=== PATIENT | female | born 1930 | race Caucasian/White ===

== ENCOUNTER 2017-10-22 16:53 | Inpatient (IN) | payer OTHER ==
--- NOTE | 2017-10-22 17:13 | PDOC ---
History of Present Illness - General Stated Complaint: FX Time Seen by Provider: 10/22/17 17:12 - History of Present Illness Initial Comments: 10/22/17 17:35 87 yo F with h/o HTN, central retinal vein occlusion, arthritis, dementia, who arrives from [facility] w/ L hip fracture s/p mechanical fall. Pt. arrviing from [facility] on [facility] ( day 1 resident). correction reports states that pt. was found on ground after attempting to ambulate from bed to dresser. Fall documented at 0820 AM. Left X ray report + for fracture. Pt. reports falling this AM unprovoked. States that she was standing in room at 0830 and her legs buckled. Ambulates unassisted. Denies BENSON, lightheadedness, or LOC, and reports falling on L hip. Does not recall if she hit her head, neck, or back. Reports nausea with one episode of biliary emesis this AM. Denies F/C, CP, SOB, cough, abdominal pain, diarrhea, constipation, sensory changes, weakness. Denies h/o CVA/TIA. Denies CAD/MS. PMD. Dr. Roderick Gill. Past History - Past Medical History Allergies/Adverse Reactions: Allergies Allergy/AdvReac Type Severity Reaction Status Date / Time indomethacin Allergy Verified 10/22/17 17:28 sulfamethoxazole Allergy Verified 10/22/17 17:28 [From Bactrim] trimethoprim [From Bactrim] Allergy Verified 10/22/17 17:28 aspirin [From Percodan] AdvReac Verified 10/22/17 17:28 oxycodone [From Percodan] AdvReac Verified 10/22/17 17:28 Home Medications: Ambulatory Orders Acetaminophen [Tylenol -] 1,000 mg PO Q6H PRN 10/23/17 Amlodipine Besylate [Norvasc -] 5 mg PO HS PRN 10/23/17 Bisacodyl [Laxative] 5 mg PO DAILY PRN 10/23/17 Clotrimazole [Lotrimin 1% Cream -] 1 applic TP DAILY 10/23/17 Cyclobenzaprine HCl [Flexeril -] 5 mg PO TID PRN 10/23/17 Dimethicone/Colloidal Oatmeal [Aveeno Daily Moisturizing Lot] 532 ml TP DAILY Latanoprost 0.005% Eye Drops [Xalatan 0.005% Eye Drops -] 1 drop OU HS 10/23/17 Lisinopril [Prinivil -] 40 mg PO DAILY 10/23/17 Magnesium Hydrox 2400MG/30Ml [Milk of Magnesia -] 30 ml PO DAILY PRN 10/23/17 Neomycin/Bacitracin/Polymyxinb [Neosporin Ointment] 15 gm TP DAILY 10/23/17 Peg 400/Hypromellose/Glycerin [Artificial Tears Drops] 1 drop OU TID 10/23/17 Review of Systems - Review of Systems Comments:: 10/22/17 17:13 GENERAL/CONSTITUTIONAL: No fever or chills. No weakness. HEAD, EYES, EARS, NOSE AND THROAT: No change in vision. No ear pain or discharge. No sore throat. CARDIOVASCULAR: No chest pain or shortness of breath RESPIRATORY: No cough, wheezing, or hemoptysis. GASTROINTESTINAL: No nausea, vomiting, diarrhea or constipation. GENITOURINARY: No dysuria, frequency, or change in urination. MUSCULOSKELETAL: + L Hip Pain. No joint or muscle swelling or pain. No neck or back pain. SKIN: No rash NEUROLOGIC: No headache, vertigo, loss of consciousness, or change in strength/ sensation. ENDOCRINE: No increased thirst. No abnormal weight change HEMATOLOGIC/LYMPHATIC: No anemia, easy bleeding, or history of blood clots. ALLERGIC/IMMUNOLOGIC: No hives or skin allergy. *Physical Exam - Physical Exam Comments: 10/22/17 17:13 GENERAL: Awake, alert, and fully oriented, in no acute distress HEAD: No signs of trauma, normocephalic, atraumatic EYES: PERRLA, EOMI, sclera anicteric, conjunctiva clear ENT: Hearing grossly normal, nares patent, oropharynx clear without exudates. Moist mucosa NECK: Normal ROM, supple, no lymphadenopathy, JVD, or masses LUNGS: No distress, speaks full sentences, clear to auscultation bilaterally HEART: Regular rate and rhythm, normal S1 and S2, no murmurs, rubs or gallops, peripheral pulses normal and equal bilaterally. ABDOMEN: Soft, nontender, normoactive bowel sounds. No guarding, no rebound. No masses EXTREMITIES :BL LE warmth and erythema. R leg skin sloughing. No edema. No clubbing or cyanosis. L hip: Left leg shortened and externally rotated. + Left sided greater trochanter ttp. NEUROLOGICAL: Cranial nerves II through XII grossly intact. Normal speech, no focal sensorimotor deficits SKIN: BL LE circumferential, warmth, erythema, and ttp extending proximally below the knee. + skin sloughing on R leg. ED Treatment Course - LABORATORY CBC & Chemistry Diagram: 10/23/17 07:37 10/23/17 07:37 Medical Decision Making - Medical Decision Making 10/22/17 17:54 87 yo F with h/o HTN, central retinal vein occlusion, arthritis, dementia, chronic venous stasis dermatitis who arrives from [facility] on [facility] ( day 1 resident) w/ L hip fracture s/p mechanical fall at 0820. Pt. found on ground after attempting to ambulate from bed to dresser. Fall documented at 0820 AM. Pt. reports falling this AM unprovoked. Ambulates unassisted. Reports nausea with one episode of biliary emesis this AM. Denies BENSON, lightheadedness, or LOC, and reports falling on L hip. Does not recall if she hit her head, neck, or back.Denies F/C, CP, SOB, cough, abdominal pain, diarrhea, constipation, sensory changes, weakness. Denies h/o CVA/TIA. Denies CAD/MS. PMD. Dr. Roderick Gill. Physical exam reveals left leg shortened and externally rotated. BL LE circumferential erythema, warmth, ttp and sloughing noted. Patient exam consistent with left hip frx. vs. dislocation. R/o head fracture. Assess for cardiac etiology, electrolyte abnormalities, aicd-base disturbance, infection. ED Course: CBC, CMP, Cardiac, Lipase EKG, CXR, L HIP UA, urine Cx CT HEAD, CT C SPINE Tylenol, NS, Vancomycin wheeler insert 10/22/17 18:41 25 mcg fentanyl 10/22/17 18:49 CT HEAD: No evidence of acute intracranial pathology. 10/22/17 18:54 C-SPINE: Mod degenerative changes. No acute changes. 10/22/17 19:09 Cr: 1.1 Pt. signed out to Dr. Zheng. Pending L hip RAD. *DC/Admit/Observation/Transfer Diagnosis at time of Disposition: Fracture of femoral neck, left Qualifiers: Encounter type: initial encounter Fracture type: closed Qualified Code(s): S72.002A - Fracture of unspecified part of neck of left femur, initial encounter for closed fracture Cellulitis Qualifiers: Site of cellulitis: extremity Site of cellulitis of extremity: lower extremity Laterality: unspecified laterality Qualified Code(s): L03.119 - Cellulitis of unspecified part of limb UTI (urinary tract infection) Qualifiers: Urinary tract infection type: acute cystitis Hematuria presence: without hematuria Qualified Code(s): N30.00 - Acute cystitis without hematuria - Discharge Dispostion Condition at time of disposition: Guarded Admit: Yes - Referrals - Patient Instructions - Post Discharge Activity
--- NOTE | 2017-10-22 17:21 | PDOC ---
Attending Attestation - HPI HPI: 10/22/17 18:57 The patient is a 87 year old female, from [facility], with a significant past medical history of hypertension, central retinal vein occlusion , arthritis, dementia, who presents to the emergency department with, left hip fracture s/p fall. The patient states she collapsed from standing earlier today and landed on her left side. The patient states she is unsure if she hit her head but denies loss of consciousness. As per [place] records a left hip XR was taken earlier which was positive for left hip fracture. The patient also reports she vomited 1x (non bloody, non bilious) approx. 1/2 hour after falling earlier today. She denies recent fevers, chills, headache or dizziness. She denies recent diarrhea or constipation. She denies recent dysuria, frequency, urgency or hematuria. She denies recent chest pain or shortness of breath. Allergies: See nursing notes Documentation prepared by Raul Iglesias, acting as medical planner for Rachel Robertson DO. - Physicial Exam PE: 10/22/17 18:58 Constitutional: Awake, alert, oriented. No acute distress. Head: Normocephalic. Atraumatic Eyes: PERRL. EOMI. Conjunctivae are not pale. ENT: Mucous membranes are moist and intact. Posterior pharynx without exudates or erythema. Uvula midline. Neck: Supple. Full ROM. No lymphadenopathy. Cardiovascular: Regular rate. Regular rhythm. S1, S2 regular. Distal pulses are 2+ and symmetric. Pulmonary/Chest: No evidence of respiratory distress. Clear to auscultation bilaterally No wheezing, rales or rhonchi. Abdominal: Soft and non-distended. There is no tenderness. No rebound, guarding or rigidity. Back: No CVA tenderness. Musculoskeletal: (+) Left hip tenderness. (+) Log roll on left lower extremity with hip pain. No cyanosis. No clubbing. No calf tenderness. Radial/pedal pulses are intact and 2+ bilaterally Skin: (+) Lower extremity cellulitis bilaterally. (+) Chronic robert stasis bilateral lower extremities. Skin is warm and dry. Neurological: Cranial nerves II-XII are grossly intact. Normal speech. Strength is grossly symmetric. No sensory deficits. Psychiatric: Good eye contact. Normal interaction, affect and behavior. <Raul Iglesias - Last Filed: 10/22/17 18:56> - Resident Resident Name: Brady Thurston - ED Attending Attestation I have performed the following: I have examined & evaluated the patient, The case was reviewed & discussed with the resident, I agree w/resident's findings & plan, Exceptions are as noted - Medical Decision Making 10/22/17 17:21 I, Dr. Rachel Robertson, DO, attest that this document has been prepared under my direction and personally reviewed by me in its entirety. I further attest, that it accurately reflects all work, treatment, procedures and medical decision -making performed by me. 10/22/17 18:39 a/p: 87yo pleasantly demented female with fall at the intermediate - now with L hip pain -will check labs, ekg, cxr, xray hip/pelvis, ct head -concern given patient appears dehydrated -vomiting - unsure if before or after fall - head ct -will check ua -apparently per transfer paperwork, has L hip fx -will repeat imaging here, will most likely need admission, wheeler, ortho consult , symphony for admission - Cathleen PMD is Keven 10/22/17 19:06 pt with b/l LE cellulitis with chronic venous stasis changes to LE, will send blood cultures and start abx - vanco 10/22/17 19:06 pt will be signed out pending xrays and admission to the oncoming ED physician <Rachel Robertson - Last Filed: 10/22/17 19:07> Heart Score/ECG Review - ECG Intrepretation Comment:: 10/22/17 18:42 sinus at 91, nl axis, nl interval, no acute st/t wave findings <Rachel Robertson - Last Filed: 10/22/17 19:07>
[2017-10-22 17:28] VITALS: BMI 26.6
[2017-10-22 18:07] LABS: BASO % 0.3 % (0-2.0); EOS % 0.6 % (0-4.5); HEMATOCRIT 37.5 % (32.4-45.2); HEMOGLOBIN 12.6 GM/dL (10.7-15.3); LYMPH % 5.1 % (8-40); MCH 33.2 pg (25.7-33.7); MCHC 33.7 g/dl (32.0-36.0); MEAN CELL VOLUME 98.5 fl (80-96); MEAN PLT VOLUME 8.8 fl (7.5-11.1); MONO % 4.2 % (3.8-10.2); NEUT % 89.8 % (42.8-82.8); PLATELET COUNT 237 K/MM3 (134-434); RBC 3.81 M/mm3 (3.60-5.2); RDW 13.9 % (11.6-15.6); WHITE BLOOD COUNT 12.6 K/mm3 (4.0-10.0)
[2017-10-22] MEDS ORDERED: VANCOMYCIN 1,000 MG in DEXTROSE 5%-WATER - 250 ML IVPB ONE (18:17)
[2017-10-22] MEDS ORDERED: VANCOMYCIN 1 GRAM (PRE-DOCKED) 1,000 MG/250 ML BAG IVPB ONE (18:36)
[2017-10-22] MEDS ORDERED: ACETAMINOPHEN 1000 MG/100 ML VIAL (NON FORMULARY) IVPB ONE (18:38)
[2017-10-22] MEDS ORDERED: SODIUM CHLORIDE 1,000 ML IV STA (18:38)
[2017-10-22 18:50] LABS: ALBUMIN 3.1 g/dl (3.4-5.0); ANION GAP 7 (8-16); BLOOD UREA NITROGEN 34 mg/dL (7-18); CALCIUM 8.2 mg/dL (8.5-10.1); CHLORIDE 107 mmol/L (98-107); CO2 25 mmol/L (21-32); CREATININE 1.1 mg/dL (0.55-1.02); SGPT/ALT 16 U/L (12-78); SODIUM 139 mmol/L (136-145)
[2017-10-22 18:51] LABS: INR 0.88 (0.82-1.09); PROTHROMBIN TIME (PATIENT) 9.9 SEC (9.98-11.88)
[2017-10-22 18:52] LABS: ALK PHOS 93 U/L (45-117); BILIRUBIN,TOTAL 0.7 mg/dL (0.2-1.0); TOT PROT 7.5 g/dl (6.4-8.2)
[2017-10-22 19:04] LABS: POTASSIUM 4.7 mmol/L (3.5-5.1); SGOT/AST 19 U/L (15-37)
[2017-10-22 19:20] LABS: GLUCOSE,RANDOM 141 mg/dL (74-106)
[2017-10-22 19:28] LABS: URINE APPEARANCE SLCLOUDY; URINE BILIRUBIN NEGATIVE (NEGATIVE); URINE BLOOD NEGATIVE (NEGATIVE); URINE COLOR STRAW; URINE GLUCOSE (UA) NEGATIVE (NEGATIVE); URINE KETONE 1+ (NEGATIVE); URINE NITRITE NEGATIVE (NEGATIVE); URINE PROTEIN NEGATIVE (NEGATIVE); URINE UROBILINOGEN NEGATIVE mg/dL (0.2-1.0)
[2017-10-22 19:39] LABS: URINE LEUK ESTERASE 3+ (NEGATIVE)
[2017-10-22 20:16] LABS: EPI CELLS RARE /HPF (FEW); URINE BACTERIA RARE /hpf (NONE SEEN); URINE MUCUS RARE
[2017-10-22] MEDS ORDERED: ACETAMINOPHEN INJECTION 100 ML IVPB ONE (21:18)
--- NOTE | 2017-10-22 21:40 | PDOC ---
*Physical Exam - Vital Signs Last Vital Signs Temp Pulse Resp BP Pulse Ox 98.8 F 86 20 139/68 96 10/22/17 17:25 10/22/17 17:25 10/22/17 17:25 10/22/17 17:25 10/22/17 17:[address] Thurston. 87 YOF with mechanical fall and exam concerning for hip fracture/dislocation. Pending hip x-ray. Given vancomycin for BLE cellulitis. ED Treatment Course - LABORATORY CBC & Chemistry Diagram: 10/22/17 17:55 10/22/17 17:55 - ADDITIONAL ORDERS Additional order review: Laboratory Results 10/22/17 10/22/17 10/22/17 18:00 17:55 17:55 PT with INR INR Sodium 139 Potassium 4.7 Chloride 107 Carbon Dioxide 25 Anion Gap 7 L BUN 34 H Creatinine 1.1 H Creat Clearance w eGFR 47.09 Random Glucose 141 H Calcium 8.2 L Total Bilirubin 0.7 AST 19 ALT 16 Alkaline Phosphatase 93 Creatine Kinase Troponin I Total Protein 7.5 Albumin 3.1 L Lipase 93 Urine Color Straw Urine Appearance Slcloudy Urine pH 7.0 Ur Specific Campbell 1.011 Urine Protein Negative Urine Glucose (UA) Negative Urine Ketones 1+ H Urine Blood Negative Urine Nitrite Negative Urine Bilirubin Negative Urine Urobilinogen Negative Ur Leukocyte Esterase 3+ H Urine WBC (Auto) 86 Urine RBC (Auto) 4 Ur Epithelial Cells Rare Urine Bacteria Rare Urine Mucus Rare 10/22/17 10/22/17 17:55 17:55 PT with INR 9.90 L INR 0.88 Sodium Potassium Chloride Carbon Dioxide Anion Gap BUN Creatinine Creat Clearance w eGFR Random Glucose Calcium Total Bilirubin AST ALT Alkaline Phosphatase Creatine Kinase 83 Troponin I 0.05 Total Protein Albumin Lipase Urine Color Urine Appearance Urine pH Ur Specific Campbell Urine Protein Urine Glucose (UA) Urine Ketones Urine Blood Urine Nitrite Urine Bilirubin Urine Urobilinogen Ur Leukocyte Esterase Urine WBC (Auto) Urine RBC (Auto) Ur Epithelial Cells Urine Bacteria Urine Mucus 10/22/17 17:55 RBC 3.81 MCV 98.5 H MCHC 33.7 RDW 13.9 MPV 8.8 Neutrophils % 89.8 H Lymphocytes % 5.1 L Monocytes % 4.2 Eosinophils % 0.6 Basophils % 0.3 - Medications Given in the ED: ED Medications Discontinued Medications Generic Name Dose Route Start Last Admin Trade Name Freq PRN Reason Stop Dose Admin Acetaminophen 1,000 mg 10/22/17 18:38 10/22/17 21:28 Ofirmev Injection - IVPB 10/22/17 18:39 1,000 mg ONCE ONE Administration Vancomycin HCl 1,000 mg/ 250 mls @ 250 mls/hr 10/22/17 18:17 10/22/17 18:46 Dextrose IVPB 10/22/17 19:16 250 mls/hr ONCE ONE Administration Protocol Sodium Chloride 1,000 mls @ 1,000 mls/hr 10/22/17 18:38 10/22/17 21:27 Normal Saline - IV 10/22/17 19:37 1,000 mls/hr ASDIR STA Administration Medical Decision Making - Medical Decision Making Hip XR showing left femoral neck fxr. Page sent to [facility] for admission. 10/22/17 21:57 Dr. Martins commissioner of officials, she will admit the patient. Decision to Admit order placed to Dr. Martins, IP Med/Surg. Consult placed to Dr. Casey' group, Ortho. Spoke with Dr. Casey regarding the patient. Patient will see cardiology for possible OR clearance tomorrow. *DC/Admit/Observation/Transfer Diagnosis at time of Disposition: Fracture of femoral neck, left Qualifiers: Encounter type: initial encounter Fracture type: closed Qualified Code(s): S72.002A - Fracture of unspecified part of neck of left femur, initial encounter for closed fracture Cellulitis Qualifiers: Site of cellulitis: extremity Site of cellulitis of extremity: lower extremity Laterality: unspecified laterality Qualified Code(s): L03.119 - Cellulitis of unspecified part of limb UTI (urinary tract infection) Qualifiers: Urinary tract infection type: acute cystitis Hematuria presence: without hematuria Qualified Code(s): N30.00 - Acute cystitis without hematuria - Discharge Dispostion Condition at time of disposition: Guarded Admit: Yes - Referrals - Patient Instructions - Post Discharge Activity
[2017-10-22] MEDS ORDERED: PIPERACIL/TAZOB 3.375 GM 3.375 GM/50 ML PREMIX IVPB ONE (21:54)
[2017-10-22] MEDS ORDERED: PIPERACILLIN/TAZOB 3.375 GM 3.375 GM/50 ML BAG IVPB ONE (23:34)
[2017-10-22] MEDS ORDERED: HEPARIN NA (PORCINE) 5,000 UNITS/ML 1ML VIAL ONE (23:34)
[2017-10-22] MEDS: HEPARIN NA (PORCINE) 5,000 UNITS/ML 1ML VIAL SQ SCH (23:49)
[2017-10-22] MEDS ORDERED: ACETAMINOPHEN 325 MG TABLET (FP) PO PRN (23:56)
[2017-10-23 07:57] LABS: BASO % 0.4 % (0-2.0); EOS % 4.4 % (0-4.5); HEMATOCRIT 36.9 % (32.4-45.2); HEMOGLOBIN 12.6 GM/dL (10.7-15.3); LYMPH % 6.8 % (8-40); MCH 33.7 pg (25.7-33.7); MCHC 34.1 g/dl (32.0-36.0); MEAN CELL VOLUME 98.7 fl (80-96); MEAN PLT VOLUME 8.9 fl (7.5-11.1); MONO % 4.5 % (3.8-10.2); NEUT % 83.9 % (42.8-82.8); PLATELET COUNT 236 K/MM3 (134-434); RBC 3.74 M/mm3 (3.60-5.2); RDW 13.6 % (11.6-15.6); WHITE BLOOD COUNT 8.8 K/mm3 (4.0-10.0)
[2017-10-23 08:21] LABS: ALBUMIN 2.7 g/dl (3.4-5.0); ANION GAP 11 (8-16); BLOOD UREA NITROGEN 21 mg/dL (7-18); CHLORIDE 108 mmol/L (98-107); CO2 22 mmol/L (21-32); GLUCOSE,RANDOM 104 mg/dL (74-106); POTASSIUM 4.3 mmol/L (3.5-5.1); SODIUM 141 mmol/L (136-145)
[2017-10-23 08:24] LABS: ALK PHOS 87 U/L (45-117); BILIRUBIN,TOTAL 0.9 mg/dL (0.2-1.0); CREATININE 0.9 mg/dL (0.55-1.02); SGOT/AST 22 U/L (15-37); SGPT/ALT 17 U/L (12-78); TOT PROT 6.9 g/dl (6.4-8.2)
--- NOTE | 2017-10-23 08:38 | CON.CARD ---
Consult Consult Specialty:: Cardiology Referred by:: Dr. Martins Reason for Consultation:: Preop cardiac evaluation - History of Present Illness Chief Complaint: Hip fracture History of Present Illness: 87 year old woman with a h/o HTN, central retinal vein occlusion, arthritis, dementia, degenerative vertebral disorder, admitted from retirement after a fall and found to have a L femoral neck fracture. Called to evaluate for perioperative cardiac risk assessment. Pt seen and examined in the ER. c/o pain in back and hip. Pt states that prior to the injury she was ambulatory in the retirement but would walk slowly as she is hunched over from her spine disease. She states that she does have mild chest discomfort from time to time but does not remember the last time this occurred. 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 Denies any other heart disease, no h/o heart attacks , no prior procedures on the heart including stents or other surgery. Denies LOC with this event. states that she just fell. no preceding symptoms. no palpitations, lightheadedness, dizzeness. denies any pnd, orthopnea, or LE edema. - History Source History Provided By: Patient, Medical Record Limitations to Obtaining History: No Limitations - Past Medical History Cardio/Vascular: Yes: HTN Musculoskeletal: Yes: Chronic low back pain, Osteoarthritis - Alcohol/Substance Use Hx Alcohol Use: No - Smoking History Smoking history: Never smoked Have you smoked in the past 12 months: No - Social History Usual Living Arrangement: Senior Care ADL: Support Services History of Recent Travel: No Home Medications - Allergies Allergies/Adverse Reactions: Allergies Allergy/AdvReac Type Severity Reaction Status Date / Time indomethacin Allergy Verified 10/22/17 17:28 sulfamethoxazole Allergy Verified 10/22/17 17:28 [From Bactrim] trimethoprim [From Bactrim] Allergy Verified 10/22/17 17:28 aspirin [From Percodan] AdvReac Verified 10/22/17 17:28 oxycodone [From Percodan] AdvReac Verified 10/22/17 17:28 - Home Medications Home Medications: Ambulatory Orders Acetaminophen [Tylenol -] 1,000 mg PO Q6H PRN 10/23/17 Amlodipine Besylate [Norvasc -] 5 mg PO HS 10/23/17 Bisacodyl [Laxative] 5 mg PO DAILY PRN 10/23/17 Clotrimazole [Lotrimin 1% Cream -] 1 applic TP DAILY 10/23/17 Cyclobenzaprine HCl [Flexeril -] 10 mg PO TID 10/23/17 Dimethicone/Colloidal Oatmeal [Aveeno Daily Moisturizing Lot] 532 ml TP DAILY Hypromellose 0.5% Opth Soln [Artificial Tears] 1 - 2 drop TID 10/23/17 Latanoprost 0.005% Eye Drops [Xalatan 0.005% Eye Drops -] 1 drop OU HS 10/23/17 Lisinopril [Prinivil -] 40 mg PO DAILY 10/23/17 Magnesium Hydrox 2400MG/30Ml [Milk of Magnesia -] 30 ml PO DAILY PRN 10/23/17 Neomycin/Bacitracin/Polymyxinb [Neosporin Ointment] 15 gm TP DAILY 10/23/17 Family Disease History - Family Disease History Family History: Denies Review of Systems - Review of Systems Constitutional: reports: Weakness. denies: No Symptoms, Chills, Diaphoresis, Fever, Lethargy, Loss of Appetite, Malaise, Night Sweats, Unintentional Wgt. Loss, Other Eyes: denies: No Symptoms, Blind Spots, Blurred Vision, Double Vision, Eye Pain , Floaters, Photophobia, Recent Change in Vision, Other HENT: denies: No Symptoms, Difficult Swallowing, Ear Discharge, Ear Pain, Epistaxis, Gingival Bleeding, Hearing Loss, Mouth Swelling, Nasal Congestion, Ocular Prosthesis, Throat Pain, Toothache, Ringing in Ears, Other Neck: denies: No Symptoms, Decreased ROM, Lumps, Pain on Movement, Stiffness, Swollen Glands, Tenderness, Other Cardiovascular: reports: Chest Pain. denies: No Symptoms, Edema, Palpitations, Shortness of Breath, Other Respiratory: denies: No Symptoms, Cough, Exercise Intolerance, Hemoptysis, Orthopnea, PND, Snoring, SOB, SOB on Exertion, Wheezing, Other Gastrointestinal: denies: No Symptoms, Abdominal Pain, Bloating, Constipation, Diarrhea, Dysphagia, Indigestion, Melena, Nausea, Rectal Bleeding, Vomiting, Vomiting Blood, Other Genitourinary: denies: No Symptoms, Burning, Discharge, Dysuria, Flank Pain, Frequency, Hematuria, Incontinence, Lesions, Menses, Pain, Testicular Mass, Testicular Pain, Testicular Swelling, Urgency, Vaginal Bleeding, Other Breasts: denies: No Symptoms Reported, See HPI, Breast Implants, Discharge from Nipple, Lumps, Pain, Skin Changes, Other Musculoskeletal: reports: Back Pain, Decreased ROM, Extremity Pain, Joint Pain, Muscle Weakness. denies: No Symptoms, Crepitus, Joint Swelling, Muscle Pain, Muscle Cramps, Other Integumentary: denies: No Symptoms, Blister, Bruising, Change in Color, Eczema, Erythema, Incision, Lesions, Lump, Pallor, Pruritis, Rash, Wound, Other Neurological: denies: No Symptoms, Change in LOC, Change in Speech, Confusion, Dizziness, Headache, Incoordination, Numbness, Parasthesia, Pre-Existing Deficit , Seizure, Syncope, Tremors, Unsteady Gait, Weakness, Other Endocrine: denies: No Symptoms, Excessive Sweating, Flushing, Increased Hunger, Increased Thirst, Intolerance to Cold, Intolerance to Heat, Unexplained Weight Gain, Unexplained Weight Loss, Other Hematology/Lymphatic: denies: No Symptoms, Easily Bruised, Excessive Bleeding, Swollen Glands, Other Psychiatric: denies: No Symptoms, Altered Sleep Pattern, Anxiety, Depression, Hallucinations, Panic, Paranoia, Suicidal, Other - Risk Factors Known Risk Factors: Yes: Age, Hypertension, Physical Inactivity Vital Signs: Vital Signs Temperature 98.8 F 10/22/17 17:25 Pulse Rate 86 10/22/17 17:25 Respiratory Rate 20 10/22/17 17:25 Blood Pressure 139/68 10/22/17 17:25 O2 Sat by Pulse Oximetry (%) 96 10/22/17 17:25 Constitutional: Yes: Calm, Mild Distress (mild pain), Thin Eyes: Yes: WNL, Conjunctiva Clear, EOM Intact, PERRL HENT: Yes: WNL, Atraumatic, Normocephalic Neck: Yes: WNL, Supple, Trachea Midline Respiratory: Yes: WNL, Regular, CTA Bilaterally. No: Rales, Rhonchi, Wheezes Gastrointestinal: Yes: WNL, Normal Bowel Sounds, Soft. No: Distention, Tenderness Renal/: Yes: WNL Cardiovascular: Yes: WNL, Regular Rate and Rhythm. No: Bradycardia, Tachycardia , Pulse Irregular, Gallop, Rub, Varicosities JVD: No Carotid Bruit: No PMI: Non-Displaced Heart Sounds: Yes: S1, S2. No: Split S2, S3, S4, Clicks, Gallop, Rub, Bruit Murmur: Yes: Systolic Murmur, Grade 1. No: Diastolic Murmur Musculoskeletal: Yes: Back Pain, Muscle Weakness Extremities: Yes: Shortened Edema: No Peripheral Pulses WNL: Yes Neurological: Yes: Alert, Oriented Psychiatric: Yes: Alert, Oriented - Other Data Labs, Other Data: CBC, BMP 10/23/17 07:37 10/23/17 07:37 INR, PTT INR 0.88 (0.82-1.09) 10/22/17 17:55 Troponin, BNP 10/22/17 17:55 Troponin I 0.05 Troponin, BNP 10/22/17 17:55 Troponin I 0.05 EKG-NSR 91bpm, sinus arrhythmia, no sig St abnl Echo: Pending Imaging - Results Chest X-ray: Report Reviewed, Image Reviewed EKG: Report Reviewed, Image Reviewed Other: Report Reviewed, Image Reviewed Assessment/Plan 87 year old woman with a h/o HTN, central retinal vein occlusion, arthritis, dementia, degenerative vertebral disorder, admitted from retirement after a fall and found to have a L femoral neck fracture. Called to evaluate for perioperative cardiac risk assessment. Pt seen and examined in the ER. c/o pain in back and hip. Pt states that prior to the injury she was ambulatory in the retirement but would walk slowly as she is hunched over from her spine disease. She states that she does have mild chest discomfort from time to time but does not remember the last time this occurred. 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 Denies any other heart disease, no h/o heart attacks , no prior procedures on the heart including stents or other surgery. Denies LOC with this event. states that she just fell. no preceding symptoms. no palpitations, lightheadedness, dizzeness. denies any pnd, orthopnea, or LE edema. Preop cardiac evaluation -pt is of advanced age, unable to assess exercise tolerance due to baseline poor exercise tolerance secondary to chronic spine disease and age -does report occasional episodes of chest pain -h/o HTN -ortho consult pending, awaiting surgical plan -will check a pharm nuclear stress test this am for risk stratification to guide intraoperative management -will check echo to evaluate for any significant structural heart disease, valvular heart disease -HTN currently adequately controlled, would resume outpatient HTN meds -if the above tests show no sig abnormalities pt would be adequate to proceed with surgery as early as this afternoon, with a known intermediate to high risk given her advanced age, risk would also depend on the type of procedure and anesthesia being done
[2017-10-23] MEDS ORDERED: REGADENOSON 0.4 MG/5 ML PRE-FILLED SYRINGE IVPUSH ONE (11:00)
[2017-10-23] MEDS: HEPARIN NA (PORCINE) 5,000 UNITS/ML 1ML VIAL SQ SCH ×2 (11:20→23:08)
--- NOTE | 2017-10-23 13:22 | PN ---
Progress Note (short form) - Note Progress Note: consult seen dictation to follow plan hip pinning when clear
--- NOTE | 2017-10-23 14:42 | CON.ID ---
Consult Consult Specialty:: infectious diseases Reason for Consultation:: cellulitits of the leg - History of Present Illness Chief Complaint: pain. and not feeling well History of Present Illness: 87 year old female, from [facility], with a significant past medical history of hypertension, central retinal vein occlusion, arthritis, dementia, who presents to the emergency department with, left hip fracture s/p fall. The patient states she collapsed from standing earlier today and landed on her left side. The patient states she is unsure if she hit her head but denies loss of consciousness. As per [place] records a left hip XR was taken earlier which was positive for left hip fracture. The patient also reports she vomited 1x (non bloody, non bilious) approx. 1/2 hour after falling earlier today. She denies recent fevers, chills, headache or dizziness. She denies recent diarrhea or constipation. She denies recent dysuria, frequency, urgency or hematuria. She denies recent chest pain or shortness of breath. patient mentions that she is incontinent and here patient had a foleys catheter placed also patient mentions that her legs have been irritating her - History Source History Provided By: Patient, Medical Record Limitations to Obtaining History: Poor Historian - Past Medical History Cardio/Vascular: Yes: HTN Musculoskeletal: Yes: Chronic low back pain, Osteoarthritis - Alcohol/Substance Use Hx Alcohol Use: No - Smoking History Smoking history: Never smoked Have you smoked in the past 12 months: No - Social History Usual Living Arrangement: [facility] ADL: Support Services History of Recent Travel: No Home Medications - Allergies Allergies/Adverse Reactions: Allergies Allergy/AdvReac Type Severity Reaction Status Date / Time indomethacin Allergy Verified 10/22/17 17:28 sulfamethoxazole Allergy Verified 10/22/17 17:28 [From Bactrim] trimethoprim [From Bactrim] Allergy Verified 10/22/17 17:28 aspirin [From Percodan] AdvReac Verified 10/22/17 17:28 oxycodone [From Percodan] AdvReac Verified 10/22/17 17:28 - Home Medications Home Medications: Ambulatory Orders Acetaminophen [Tylenol -] 1,000 mg PO Q6H PRN 10/23/17 Amlodipine Besylate [Norvasc -] 5 mg PO HS PRN 10/23/17 Bisacodyl [Laxative] 5 mg PO DAILY PRN 10/23/17 Clotrimazole [Lotrimin 1% Cream -] 1 applic TP DAILY 10/23/17 Cyclobenzaprine HCl [Flexeril -] 5 mg PO TID PRN 10/23/17 Dimethicone/Colloidal Oatmeal [Aveeno Daily Moisturizing Lot] 532 ml TP DAILY Latanoprost 0.005% Eye Drops [Xalatan 0.005% Eye Drops -] 1 drop OU HS 10/23/17 Lisinopril [Prinivil -] 40 mg PO DAILY 10/23/17 Magnesium Hydrox 2400MG/30Ml [Milk of Magnesia -] 30 ml PO DAILY PRN 10/23/17 Neomycin/Bacitracin/Polymyxinb [Neosporin Ointment] 15 gm TP DAILY 10/23/17 Peg 400/Hypromellose/Glycerin [Artificial Tears Drops] 1 drop OU TID 10/23/17 Review of Systems - Review of Systems Constitutional: reports: No Symptoms Eyes: reports: No Symptoms HENT: reports: No Symptoms Neck: reports: No Symptoms Cardiovascular: reports: No Symptoms Respiratory: reports: No Symptoms Gastrointestinal: reports: No Symptoms Genitourinary: reports: Incontinence Musculoskeletal: reports: Muscle Pain Integumentary: reports: Change in Color, Erythema (bilateral legs) Neurological: reports: No Symptoms Endocrine: reports: No Symptoms Hematology/Lymphatic: reports: No Symptoms Psychiatric: reports: No Symptoms Physical Exam Vital Signs: Vital Signs Temperature 98 F 10/23/17 10:00 Pulse Rate 85 10/23/17 10:00 Respiratory Rate 20 10/23/17 10:00 Blood Pressure 152/77 10/23/17 10:00 O2 Sat by Pulse Oximetry (%) 96 10/22/17 17:25 Constitutional: Yes: Well Nourished, Calm, Mild Distress HENT: Yes: Atraumatic, Normocephalic Neck: Yes: Supple, Trachea Midline Cardiovascular: Yes: Regular Rate and Rhythm, S1, S2 Respiratory: Yes: Regular, CTA Bilaterally Gastrointestinal: Yes: Normal Bowel Sounds, Soft Musculoskeletal: Yes: Other Extremities: Yes: Erythema (bilateral lower legs left more than right), Other Neurological: Yes: Alert, Oriented Psychiatric: Yes: Alert, Oriented Labs: CBC, BMP 10/23/17 07:37 10/23/17 07:37 Assessment/Plan Problem List - Problems (1) Cellulitis Code(s): L03.90 - CELLULITIS, UNSPECIFIED Qualifiers: Site of cellulitis: extremity Site of cellulitis of extremity: lower extremity Laterality: unspecified laterality Qualified Code(s): L03.119 - Cellulitis of unspecified part of limb (2) Fracture of femoral neck, left Code(s): S72.002A - FRACTURE OF UNSP PART OF NECK OF LEFT FEMUR, INIT Qualifiers: Encounter type: initial encounter Fracture type: closed Qualified Code(s) : S72.002A - Fracture of unspecified part of neck of left femur, initial encounter for closed fracture (3) UTI (urinary tract infection) Code(s): N39.0 - URINARY TRACT INFECTION, SITE NOT SPECIFIED Qualifiers: Urinary tract infection type: acute cystitis Hematuria presence: without hematuria Qualified Code(s): N30.00 - Acute cystitis without hematuria plan await for all the cx reports will start patient on abx ortho to decide about further mgmt rest as per primary team
--- NOTE | 2017-10-23 15:40 | HP ---
Admitting History and Physical - Primary Care Physician PCP: Clyde Martins - Admission History of Present Illness: 87 year old female, from [facility], with a significant past medical history of hypertension, central retinal vein occlusion, arthritis, dementia, who presents to the emergency department with, left hip fracture s/p fall. The patient states she collapsed from standing earlier today and landed on her left side. The patient states she is unsure if she hit her head but denies loss of consciousness. As per [place] records a left hip XR was taken earlier which was positive for left hip fracture. The patient also reports she vomited 1x (non bloody, non bilious) approx. 1/2 hour after falling earlier today. - Past Medical History Cardiovascular: Yes: HTN Musculoskeletal: Yes: Chronic low back pain, Osteoarthritis - Smoking History Smoking history: Never smoked Have you smoked in the past 12 months: No - Alcohol/Substance Use Hx Alcohol Use: No - Social History ADL: Support Services History of Recent Travel: No Home Medications - Allergies Allergies/Adverse Reactions: Allergies Allergy/AdvReac Type Severity Reaction Status Date / Time indomethacin Allergy Verified 10/22/17 17:28 sulfamethoxazole Allergy Verified 10/22/17 17:28 [From Bactrim] trimethoprim [From Bactrim] Allergy Verified 10/22/17 17:28 aspirin [From Percodan] AdvReac Verified 10/22/17 17:28 oxycodone [From Percodan] AdvReac Verified 10/22/17 17:28 - Home Medications Home Medications: Ambulatory Orders Acetaminophen [Tylenol -] 1,000 mg PO Q6H PRN 10/23/17 Amlodipine Besylate [Norvasc -] 5 mg PO HS PRN 10/23/17 Bisacodyl [Laxative] 5 mg PO DAILY PRN 10/23/17 Clotrimazole [Lotrimin 1% Cream -] 1 applic TP DAILY 10/23/17 Cyclobenzaprine HCl [Flexeril -] 5 mg PO TID PRN 10/23/17 Dimethicone/Colloidal Oatmeal [Aveeno Daily Moisturizing Lot] 532 ml TP DAILY Latanoprost 0.005% Eye Drops [Xalatan 0.005% Eye Drops -] 1 drop OU HS 10/23/17 Lisinopril [Prinivil -] 40 mg PO DAILY 10/23/17 Magnesium Hydrox 2400MG/30Ml [Milk of Magnesia -] 30 ml PO DAILY PRN 10/23/17 Neomycin/Bacitracin/Polymyxinb [Neosporin Ointment] 15 gm TP DAILY 10/23/17 Peg 400/Hypromellose/Glycerin [Artificial Tears Drops] 1 drop OU TID 10/23/17 Physical Examination Vital Signs: Vital Signs Temperature 98 F 10/23/17 10:00 Pulse Rate 85 10/23/17 10:00 Respiratory Rate 20 10/23/17 10:00 Blood Pressure 152/77 10/23/17 10:00 O2 Sat by Pulse Oximetry (%) 96 10/22/17 17:25 Constitutional: Yes: No Distress HENT: Yes: Atraumatic Neck: Yes: Supple Cardiovascular: Yes: Regular Rate and Rhythm Respiratory: Yes: CTA Bilaterally Gastrointestinal: Yes: Normal Bowel Sounds Extremities: Yes: Other (R berna cellulitis) Labs: CBC, BMP 10/23/17 07:37 10/23/17 07:37 Problem List - Problems (1) Cellulitis Code(s): L03.90 - CELLULITIS, UNSPECIFIED Qualifiers: Site of cellulitis: extremity Site of cellulitis of extremity: lower extremity Laterality: unspecified laterality Qualified Code(s): L03.119 - Cellulitis of unspecified part of limb (2) Fracture of femoral neck, left Code(s): S72.002A - FRACTURE OF UNSP PART OF NECK OF LEFT FEMUR, INIT Qualifiers: Encounter type: initial encounter Fracture type: closed Qualified Code(s) : S72.002A - Fracture of unspecified part of neck of left femur, initial encounter for closed fracture (3) UTI (urinary tract infection) Code(s): N39.0 - URINARY TRACT INFECTION, SITE NOT SPECIFIED Qualifiers: Urinary tract infection type: acute cystitis Hematuria presence: without hematuria Qualified Code(s): N30.00 - Acute cystitis without hematuria Assessment/Plan Laboratory Tests 10/22/17 10/22/17 10/22/17 17:55 17:55 17:55 WBC 12.6 H RBC 3.81 Hgb 12.6 Hct 37.5 MCV 98.5 H MCH 33.2 MCHC 33.7 RDW 13.9 Plt Count 237 MPV 8.8 Neutrophils % 89.8 H Lymphocytes % 5.1 L Monocytes % 4.2 Eosinophils % 0.6 Basophils % 0.3 PT with INR 9.90 L INR 0.88 Sodium Potassium Chloride Carbon Dioxide Anion Gap BUN Creatinine Creat Clearance w eGFR Random Glucose Calcium Total Bilirubin AST ALT Alkaline Phosphatase Creatine Kinase 83 Troponin I 0.05 Total Protein Albumin Lipase Urine Color Urine Appearance Urine pH Ur Specific Halliday Urine Protein Urine Glucose (UA) Urine Ketones Urine Blood Urine Nitrite Urine Bilirubin Urine Urobilinogen Ur Leukocyte Esterase Urine WBC (Auto) Urine RBC (Auto) Ur Epithelial Cells Urine Bacteria Urine Mucus 10/22/17 10/22/17 10/22/17 17:55 17:55 18:00 WBC RBC Hgb Hct MCV MCH MCHC RDW Plt Count MPV Neutrophils % Lymphocytes % Monocytes % Eosinophils % Basophils % PT with INR INR Sodium 139 Potassium 4.7 Chloride 107 Carbon Dioxide 25 Anion Gap 7 L BUN 34 H Creatinine 1.1 H Creat Clearance w eGFR 47.09 Random Glucose 141 H Calcium 8.2 L Total Bilirubin 0.7 AST 19 ALT 16 Alkaline Phosphatase 93 Creatine Kinase Troponin I Total Protein 7.5 Albumin 3.1 L Lipase 93 Urine Color Straw Urine Appearance Slcloudy Urine pH 7.0 Ur Specific Halliday 1.011 Urine Protein Negative Urine Glucose (UA) Negative Urine Ketones 1+ H Urine Blood Negative Urine Nitrite Negative Urine Bilirubin Negative Urine Urobilinogen Negative Ur Leukocyte Esterase 3+ H Urine WBC (Auto) 86 Urine RBC (Auto) 4 Ur Epithelial Cells Rare Urine Bacteria Rare Urine Mucus Rare 10/23/17 10/23/17 07:37 07:37 WBC 8.8 D RBC 3.74 Hgb 12.6 Hct 36.9 MCV 98.7 H MCH 33.7 MCHC 34.1 RDW 13.6 Plt Count 236 MPV 8.9 Neutrophils % 83.9 H Lymphocytes % 6.8 L D Monocytes % 4.5 Eosinophils % 4.4 D Basophils % 0.4 PT with INR INR Sodium 141 Potassium 4.3 Chloride 108 H Carbon Dioxide 22 Anion Gap 11 BUN 21 H Creatinine 0.9 Creat Clearance w eGFR 59.37 Random Glucose 104 Calcium 8.0 L Total Bilirubin 0.9 D AST 22 ALT 17 Alkaline Phosphatase 87 Creatine Kinase Troponin I Total Protein 6.9 Albumin 2.7 L Lipase Urine Color Urine Appearance Urine pH Ur Specific Halliday Urine Protein Urine Glucose (UA) Urine Ketones Urine Blood Urine Nitrite Urine Bilirubin Urine Urobilinogen Ur Leukocyte Esterase Urine WBC (Auto) Urine RBC (Auto) Ur Epithelial Cells Urine Bacteria Urine Mucus Active Medications Generic Name Dose Route Start Last Admin Trade Name Freq PRN Reason Stop Dose Admin Acetaminophen 650 mg 10/22/17 23:56 Tylenol - PO Q6H PRN FEVER Amlodipine Besylate 5 mg 10/23/17 22:00 Norvasc - PO HS [facility] Heparin Sodium (Porcine) 5,000 unit 10/22/17 23:27 10/23/17 11:20 Heparin - SQ 5,000 unit BID JOSE Administration Piperacillin Sod/Tazobactam 50 mls @ 100 mls/hr 10/23/17 18:00 Sod 3.375 gm/ Dextrose IVPB Q8H-IV [facility] Protocol Latanoprost 1 drop 10/23/17 22:00 Xalatan 0.005% Eye Drops - OU HS [facility] Lisinopril 40 mg 10/24/17 10:00 Prinivil PO DAILY JOSE
[2017-10-23] MEDS ORDERED: amLODIPine BESYLATE 5 MG TABLET (FP) PO SCH (22:00)
[2017-10-23] MEDS ORDERED: LATANOPROST 0.005% OPHTH SOLN 2.5ML BOTTLE OU SCH (22:00)
[2017-10-23] MEDS: PIPERACILLIN/TAZOB 3.375 GM 3.375 GM in DEXTROSE 5%-WATER - 50 ML IVPB SCH (22:58)
--- NOTE | 2017-10-23 22:58 | CONS ---
DATE OF CONSULTATION: 10/23/2017 CHIEF COMPLAINT: Left hip injury. HISTORY OF PRESENT ILLNESS: This is an 87-year-old woman who lives in [facility] on [address] who suffered a fall. She was found to have a hip fracture. She was sent to [facility] for further workup. At the time of her exam she is somewhat confused , cannot recall the events well. She states she does have pain in the left hip. She denies any pain elsewhere. There is no radiating pain, no numbness or tingling. She notes no previous injuries. PAST MEDICAL HISTORY: Reviewed as the chart. PAST SURGICAL HISTORY: Reviewed as in chart. MEDICATION: Reviewed as in chart. REVIEW OF SYSTEMS: Negative for any GI, , general, systemic symptoms. PHYSICAL EXAMINATION: General: This is an elderly female in no acute distress. She is lying on the hospital stretcher. She is somewhat confused at the time of exam but does respond to conversation appropriately. Extremities: Examination of the left lower extremity demonstrates no gross deformity. There is chronic venous change in bilateral lower extremities. There is erythema, although it is unclear if this is a chronic condition or overlying cellulitis. She does have pain with any motion of the left hip. The knee is nontender. The ankle is nontender. Capillary refill is less than 2 seconds. She has thready DP pulse. Sensation is grossly intact to light touch. Motor intact. Radiographs are reviewed demonstrating impacted left femoral neck fracture. PLAN: I reviewed today's findings with the patient. I discussed that she has an impacted left femoral neck fracture. In general, this is treated with hip pinning. This helps to stabilize the fracture as it heals on its own. I reviewed the option of nonoperative care with higher risk of displacement. Reviewed operative risks in detail including bleeding, infection, neurovascular injury, and the need for further surgery, postoperative pain and stiffness, nonunion, malunion, hardware failure or cutout . Discussed need for possible conversion to steve-arthroplasty should this construct fail. I reviewed medical risks such as heart attack, stroke, DVT, PE , and . I addressed all the patient's questions. She did voice understanding and elected to proceed. In addition, I made phone calls to the listed chart number in the hospital chart. I called [facility] and made phone calls to all the numbers which are available, and no family was able to be reached for collateral information. The plan at this point is to take the patient to the OR tomorrow pending clearance. MADY JUNE M.D. JENNY/[id number] MTDD
--- NOTE | 2017-10-24 01:08 | EKG ---
Test Reason : Blood Pressure : / mmHG Vent. Rate : 091 BPM Atrial Rate : 091 BPM P-R Int : 148 ms QRS Dur : 070 ms QT Int : 360 ms P-R-T Axes : 027 017 044 degrees QTc Int : 442 ms NORMAL SINUS RHYTHM WITH SINUS ARRHYTHMIA NORMAL ECG NO PREVIOUS ECGS AVAILABLE Confirmed by ROBERTO PAGE MD ([id number]) on 10/24/2017 1:08:08 AM Referred By: Confirmed By:ROBERTO PAGE MD
[2017-10-24] MEDS: PIPERACILLIN/TAZOB 3.375 GM 3.375 GM in DEXTROSE 5%-WATER - 50 ML IVPB SCH (02:21)
[2017-10-24] MEDS ORDERED: ONDANSETRON 4 MG/2 ML VIAL IVPUSH PRN ×2 (08:13→15:58)
[2017-10-24] MEDS ORDERED: LACTATED RINGERS SOLUTION 1,000 ML IV SCH ×2 (08:15→11:15)
[2017-10-24] MEDS ORDERED: LIDOCAINE HCL/PF 2% SDV 5ML VIAL ONE (08:37)
[2017-10-24] MEDS ORDERED: ETOMIDATE 20 MG/10 ML AMPUL IVPUSH ONE (08:37)
[2017-10-24] MEDS ORDERED: ceFAZolin SODIUM 1 GM VIAL ONE (08:50)
[2017-10-24] MEDS ORDERED: ceFAZolin SODIUM 1 GM VIAL IVPB ONE ×2 (08:51→08:52)
[2017-10-24] MEDS ORDERED: DEXAMETHASONE SOD PHOSPHATE 4 MG/1 ML VIAL ONE (08:59)
--- NOTE | 2017-10-24 09:36 | OP ---
Operative Note - Note: Operative Date: 10/24/17 Pre-Operative Diagnosis: left impacted femoral neck fracture Operation: left hip pinning Implants: mayito 8.5mm cannulated screws x4 Post-Operative Diagnosis: Same as Pre-op Surgeon: Lucian Casey Anesthesiologist/REFRIGERATION INSTALLER: Belkis Shen Anesthesia: General Estimated Blood Loss (mls): 15 Operative Report Dictated: Yes
[2017-10-24] MEDS ORDERED: ACETAMINOPHEN 325 MG TABLET (FP) PO PRN (09:43)
--- NOTE | 2017-10-24 09:48 | OP ---
DATE OF OPERATION: 10/24/2017 PREOPERATIVE DIAGNOSIS: Left hip impacted femoral neck fracture. POSTOPERATIVE DIAGNOSIS: Left hip impacted femoral neck fracture. PROCEDURE: Left hip pinning. IMPLANTS: [place] 6.5-mm cannulated screws x4. ANESTHESIA: General. POSTOPERATIVE CONDITION: Stable. COMPLICATIONS: None. BLOOD LOSS: 15 mL. INDICATION: This is a pleasant 87-year-old female who suffered a left impacted femoral neck fracture. She was admitted to the hospital, medically optimized and indicated for operative fixation. Prior to surgery, the risks, benefits and alternatives were discussed with the patient in detail, including bleeding, infection, neurovascular injury, need for further surgery, postoperative pain and stiffness, nonunion, malunion, hardware failure and cutout. We discussed the possibility of revision to hemiarthroplasty. We reviewed the option of nonoperative care with potential for displacement of the fracture. We reviewed the option of hemiarthroplasty which is overly aggressive I believe for this. I addressed all the patient's questions and concerns about the procedure itself. We also reviewed medical risks such as heart attack, stroke, DVT, PE and . Again, the patient voiced understanding and elected to proceed. PROCEDURE: Patient was brought to the operating room where general anesthesia was administered. She was placed on the fracture table, careful to pad all bony prominences. The left lower extremity was then placed into slight internal rotation and adduction. The left lower extremity was then prepped and draped in the usual sterile fashion. A preoperative dose of antibiotics was given and the usual timeout procedure was performed. At this point, a guide pin was inserted percutaneously into the inferior and central aspect of the femoral neck. Guide pin placement was confirmed fluoroscopically in 2 planes. An incision was then made about the guide pin and 3 additional pins were inserted into a juan jose configuration into the femoral neck. The guide pins were advanced into the subchondral bone of the femoral head. All guide pins were confirmed as far as their placement goes fluoroscopically. They were each measured. They were then drilled over on the near cortex. Screws of appropriate length were then inserted; 2 screws were too long and then were changed out for shorter screws. The entire construct was examined now fluoroscopically and the construct was satisfactory. The wound was copiously irrigated. The subcutaneous tissue was approximated using 2-0 Vicryl. The skin was closed using 3-0 nylon. Sterile dressings were placed. The patient was extubated and transferred to the recovery room in stable condition. Travon [id number] MTDD
[2017-10-24] MEDS ORDERED: LISINOPRIL 20 MG TABLET (FP) PO SCH (10:00)
[2017-10-24] MEDS ORDERED: PIPERACILLIN/TAZOB 3.375 GM 3.375 GM in DEXTROSE 5%-WATER - 50 ML IVPB SCH (10:00)
[2017-10-24] MEDS ORDERED: ENOXAPARIN NA (PORCINE) 40 MG/0.4 ML DISP.SYRIN SQ SCH (10:00)
[2017-10-24] MEDS ORDERED: ONDANSETRON 4 MG/2 ML VIAL ONE (10:04)
--- NOTE | 2017-10-24 10:10 | PN ---
Progress Note, Physician Chief Complaint: Seen and examined in PACU at 10AM s/p left hip pinning. She is presently in NSR, hemodynamically stable. History of Present Illness: Blood pressure is controlled at this time - Current Medication List Current Medications: Active Medications Acetaminophen (Tylenol -) 650 mg PO Q6H PRN PRN Reason: FEVER Amlodipine Besylate (Norvasc -) 5 mg PO HS JOSE Calcium Carbonate/Cholecalciferol (Os-Tevin 500+D -) tab PO BID JOSE Enoxaparin Sodium (Lovenox -) 40 mg SQ DAILY JOSE Piperacillin Sod/Tazobactam (Sod 3.375 gm/ Dextrose) 50 mls @ 100 mls/hr IVPB Q8H-IV JOSE PRN Reason: Protocol Latanoprost (Xalatan 0.005% Eye Drops -) 1 drop OU HS JOSE Lisinopril (Prinivil) 40 mg PO DAILY JOSE - Objective Vital Signs: Vital Signs Temperature 98.1 F 10/24/17 07:33 Pulse Rate 88 10/24/17 07:33 Respiratory Rate 20 10/24/17 07:33 Blood Pressure 139/67 10/24/17 07:33 O2 Sat by Pulse Oximetry (%) 96 10/23/17 09:00 Constitutional: Yes: No Distress, Calm Cardiovascular: Yes: Regular Rate and Rhythm Respiratory: Yes: Other (clear anteriorly and laterally, no wheezing.) Gastrointestinal: Yes: Soft (non-tender) Edema: No Labs: CBC, BMP 10/23/17 07:37 10/23/17 07:37 INR, PTT INR 0.88 (0.82-1.09) 10/22/17 17:55 Microbiology 10/22/17 09:30 Blood - Peripheral Venous Blood Culture - Preliminary NO GROWTH OBTAINED AFTER 24 HOURS, INCUBATION TO CONTINUE FOR 4 DAYS. 10/22/17 09:30 Blood - Peripheral Venous Blood Culture - Preliminary NO GROWTH OBTAINED AFTER 24 HOURS, INCUBATION TO CONTINUE FOR 4 DAYS. Laboratory Tests 10/22/17 10/23/17 10/23/17 17:55 07:37 07:37 WBC 8.8 D Hgb 12.6 Plt Count 236 Sodium 141 Potassium 4.3 BUN 21 H Creatinine 0.9 AST 22 ALT 17 Alkaline Phosphatase 87 Creatine Kinase 83 Troponin I 0.05 Assessment/Plan 87 year old woman with a h/o HTN, central retinal vein occlusion, arthritis, dementia, degenerative vertebral disorder, admitted from [facility] after a fall and found to have a L femoral neck fracture now s/p left hip pinning. She is currently in NSR and hemodynamically stable in the PACU. Preop echo showed Normal LV systolic function with no significant valve disease. REC: 1. Post op orders as per ortho 2. DVT prophylaxis as per PMD and ortho 3. Would cont. usual BP meds with hold parameter (hold for SBP < 110mmHg) Will follow, please call if any CV clinical concerns.
[2017-10-24] MEDS ORDERED: PIPERACILLIN/TAZOB 3.375 GM 3.375 GM in DEXTROSE 5%-WATER - 50 ML IVPB ONE (10:15)
--- NOTE | 2017-10-24 11:03 | PN ---
Progress Note, Physician History of Present Illness: S/P SURGERY - Current Medication List Current Medications: Active Medications Acetaminophen (Tylenol -) 650 mg PO Q6H PRN PRN Reason: FEVER Amlodipine Besylate (Norvasc -) 5 mg PO HS [facility] Calcium Carbonate/Cholecalciferol (Os-Tevin 500+D -) tab PO BID JOSE Enoxaparin Sodium (Lovenox -) 40 mg SQ DAILY JOSE Piperacillin Sod/Tazobactam (Sod 3.375 gm/ Dextrose) 50 mls @ 100 mls/hr IVPB Q8H-IV JOSE PRN Reason: Protocol Latanoprost (Xalatan 0.005% Eye Drops -) 1 drop OU HS JOSE Lisinopril (Prinivil) 40 mg PO DAILY JOSE - Objective Vital Signs: Vital Signs Temperature 98.5 F 10/24/17 09:32 Pulse Rate 73 10/24/17 10:45 Respiratory Rate 18 10/24/17 10:45 Blood Pressure 124/53 10/24/17 10:45 O2 Sat by Pulse Oximetry (%) 100 10/24/17 10:45 Constitutional: Yes: No Distress HENT: Yes: Normocephalic Cardiovascular: Yes: Regular Rate and Rhythm Respiratory: Yes: CTA Bilaterally Gastrointestinal: Yes: Normal Bowel Sounds Extremities: Yes: Other (cellulitis R berna) Edema: LLE: Trace, RLE: Trace Peripheral Pulses WNL: Yes Neurological: Yes: Alert, Oriented Labs: CBC, BMP 10/23/17 07:37 10/23/17 07:37 INR, PTT INR 0.88 (0.82-1.09) 10/22/17 17:55 Problem List - Problems (1) Cellulitis Assessment/Plan: on iv abx Code(s): L03.90 - CELLULITIS, UNSPECIFIED Qualifiers: Site of cellulitis: extremity Site of cellulitis of extremity: lower extremity Laterality: unspecified laterality Qualified Code(s): L03.119 - Cellulitis of unspecified part of limb (2) Fracture of femoral neck, left Assessment/Plan: s/p surgery today Code(s): S72.002A - FRACTURE OF UNSP PART OF NECK OF LEFT FEMUR, INIT Qualifiers: Encounter type: initial encounter Fracture type: closed Qualified Code(s) : S72.002A - Fracture of unspecified part of neck of left femur, initial encounter for closed fracture (3) UTI (urinary tract infection) Assessment/Plan: on abx Code(s): N39.0 - URINARY TRACT INFECTION, SITE NOT SPECIFIED Qualifiers: Urinary tract infection type: acute cystitis Hematuria presence: without hematuria Qualified Code(s): N30.00 - Acute cystitis without hematuria
--- NOTE | 2017-10-24 12:47 | PN ---
Progress Note, Physician History of Present Illness: patient says she is very nauseous uncomfortable blood cx negative urine cx pending - Current Medication List Current Medications: Active Medications Acetaminophen (Tylenol -) 650 mg PO Q6H PRN PRN Reason: FEVER Amlodipine Besylate (Norvasc -) 5 mg PO HS [facility] Calcium Carbonate/Cholecalciferol (Os-Tevin 500+D -) 1 tab PO BID JOSE Enoxaparin Sodium (Lovenox -) 40 mg SQ DAILY [facility] Piperacillin Sod/Tazobactam (Sod 3.375 gm/ Dextrose) 50 mls @ 100 mls/hr IVPB Q8H-IV JOSE PRN Reason: Protocol Lactated Ringer's (Lactated Ringers Solution) 1,000 mls @ 125 mls/hr IV ASDIR JO[facility] Latanoprost (Xalatan 0.005% Eye Drops -) 1 drop OU HS JOSE Lisinopril (Prinivil) 40 mg PO DAILY JOSE - Objective Vital Signs: Vital Signs Temperature 98 F 10/24/17 11:15 Pulse Rate 66 10/24/17 11:15 Respiratory Rate 18 10/24/17 11:15 Blood Pressure 119/62 10/24/17 11:15 O2 Sat by Pulse Oximetry (%) 99 10/24/17 11:15 Constitutional: Yes: Calm, Mild Distress Cardiovascular: Yes: S1, S2 Respiratory: Yes: Regular, CTA Bilaterally Gastrointestinal: Yes: Normal Bowel Sounds, Soft Musculoskeletal: Yes: WNL Extremities: Yes: Other Neurological: Yes: Alert, Oriented Psychiatric: Yes: Alert, Oriented Labs: CBC, BMP 10/23/17 07:37 10/23/17 07:37 INR, PTT INR 0.88 (0.82-1.09) 10/22/17 17:55 Assessment/Plan Problem List - Problems (1) Cellulitis Code(s): L03.90 - CELLULITIS, UNSPECIFIED Qualifiers: Site of cellulitis: extremity Site of cellulitis of extremity: lower extremity Laterality: unspecified laterality Qualified Code(s): L03.119 - Cellulitis of unspecified part of limb (2) Fracture of femoral neck, left Code(s): S72.002A - FRACTURE OF UNSP PART OF NECK OF LEFT FEMUR, INIT Qualifiers: Encounter type: initial encounter Fracture type: closed Qualified Code(s) : S72.002A - Fracture of unspecified part of neck of left femur, initial encounter for closed fracture (3) UTI (urinary tract infection) Code(s): N39.0 - URINARY TRACT INFECTION, SITE NOT SPECIFIED Qualifiers: Urinary tract infection type: acute cystitis Hematuria presence: without hematuria Qualified Code(s): N30.00 - Acute cystitis without hematuria plan await for urine report continue abx rest as per primary team and ortho
[2017-10-24] MEDS: LISINOPRIL 20 MG TABLET (FP) PO SCH (13:52)
[2017-10-24] MEDS: CALCIUM 500MG/VIT-D 200 UNITS COMBO TABLET (FP) PO SCH ×2 (13:52→22:27)
[2017-10-24] MEDS ORDERED: amLODIPine BESYLATE 5 MG TABLET (FP) PO SCH (22:00)
[2017-10-24] MEDS ORDERED: LATANOPROST 0.005% OPHTH SOLN 2.5ML BOTTLE OU SCH (22:00)
[2017-10-24] MEDS ORDERED: PT OWN MED DRAWER 7, Y5N ONE (22:06)
[2017-10-25 07:47] LABS: BASO % 0.4 % (0-2.0); EOS % 1.7 % (0-4.5); HEMATOCRIT 32.5 % (32.4-45.2); HEMOGLOBIN 11.1 GM/dL (10.7-15.3); LYMPH % 13.3 % (8-40); MCH 33.4 pg (25.7-33.7); MEAN CELL VOLUME 98.2 fl (80-96); MEAN PLT VOLUME 8.5 fl (7.5-11.1); MONO % 9.5 % (3.8-10.2); NEUT % 75.1 % (42.8-82.8); PLATELET COUNT 208 K/MM3 (134-434); RBC 3.31 M/mm3 (3.60-5.2); RDW 13.6 % (11.6-15.6); WHITE BLOOD COUNT 10.3 K/mm3 (4.0-10.0)
[2017-10-25 08:12] LABS: CHLORIDE 105 mmol/L (98-107); POTASSIUM 4.2 mmol/L (3.5-5.1); SODIUM 140 mmol/L (136-145)
[2017-10-25 08:19] LABS: ALBUMIN 2.2 g/dl (3.4-5.0); ALK PHOS 71 U/L (45-117); ANION GAP 10 (8-16); BILIRUBIN,TOTAL 0.5 mg/dL (0.2-1.0); BLOOD UREA NITROGEN 24 mg/dL (7-18); CALCIUM 8.1 mg/dL (8.5-10.1); CO2 25 mmol/L (21-32); CREATININE 0.8 mg/dL (0.55-1.02); GLUCOSE,RANDOM 107 mg/dL (74-106); SGOT/AST 12 U/L (15-37); SGPT/ALT 17 U/L (12-78)
--- NOTE | 2017-10-25 08:26 | PN ---
Progress Note (short form) - Note Progress Note: POD #1 - s/p left hip pinning under general anesthesia. VSS. Pt. doing well, sitting up comfortably in bed eating breakfast. C/o some nausea post-op. Received zofran. No nausea presently, tolerating breakfast. No apparent anesthetic complications noted. Continue current care.
[2017-10-25] MEDS ORDERED: ENOXAPARIN NA (PORCINE) 40 MG/0.4 ML DISP.SYRIN SQ SCH (10:00)
[2017-10-25] MEDS: CALCIUM 500MG/VIT-D 200 UNITS COMBO TABLET (FP) PO SCH (11:41)
[2017-10-25] MEDS: LISINOPRIL 20 MG TABLET (FP) PO SCH (11:42)
--- NOTE | 2017-10-25 13:38 | PN ---
Progress Note, Physician Chief Complaint: doing well no issues - Current Medication List Current Medications: Active Medications Acetaminophen (Tylenol -) 650 mg PO Q6H PRN PRN Reason: FEVER Last Admin: 10/25/17 05:06 Dose: 650 mg Amlodipine Besylate (Norvasc -) 5 mg PO HS [facility] Last Admin: 10/24/17 22:27 Dose: 5 mg Calcium Carbonate/Cholecalciferol (Os-Tevin 500+D -) 1 tab PO BID [facility] Last Admin: 10/25/17 11:41 Dose: 1 tab Clotrimazole (Lotrisone Cream (Small Tube)) 1 applic TP TID [facility] Enoxaparin Sodium (Lovenox -) 40 mg SQ DAILY [facility] Last Admin: 10/25/17 11:41 Dose: 40 mg Lactated Ringer's (Lactated Ringers Solution) 1,000 mls @ 125 mls/hr IV ASDIR [facility] Last Admin: 10/25/17 05:34 Dose: 125 mls/hr Latanoprost (Xalatan 0.005% Eye Drops -) 1 drop OU [facility] Last Admin: 10/24/17 22:00 Dose: Not Given Lisinopril (Prinivil) 40 mg PO DAILY [facility] Last Admin: 10/25/17 11:42 Dose: 40 mg Ondansetron HCl (Zofran Injection) 4 mg IVPUSH Q6H PRN PRN Reason: NAUSEA AND/OR VOMITING - Objective Vital Signs: Vital Signs Temperature 98.0 F 10/25/17 06:15 Pulse Rate 71 10/25/17 06:15 Respiratory Rate 20 10/25/17 06:15 Blood Pressure 132/74 10/25/17 06:15 O2 Sat by Pulse Oximetry (%) 99 10/24/17 21:00 Constitutional: Yes: No Distress, Calm Cardiovascular: Yes: Regular Rate and Rhythm Respiratory: Yes: Regular, CTA Bilaterally Gastrointestinal: Yes: Normal Bowel Sounds, Soft Musculoskeletal: Yes: WNL Extremities: Yes: WNL Neurological: Yes: Alert, Oriented Psychiatric: Yes: Alert, Oriented Labs: CBC, BMP 10/25/17 06:00 10/25/17 06:00 INR, PTT INR 0.88 (0.82-1.09) 10/22/17 17:55 Assessment/Plan Problem List - Problems (1) Cellulitis Code(s): L03.90 - CELLULITIS, UNSPECIFIED Qualifiers: Site of cellulitis: extremity Site of cellulitis of extremity: lower extremity Laterality: unspecified laterality Qualified Code(s): L03.119 - Cellulitis of unspecified part of limb (2) Fracture of femoral neck, left Code(s): S72.002A - FRACTURE OF UNSP PART OF NECK OF LEFT FEMUR, INIT Qualifiers: Encounter type: initial encounter Fracture type: closed Qualified Code(s) : S72.002A - Fracture of unspecified part of neck of left femur, initial encounter for closed fracture (3) UTI (urinary tract infection) Code(s): N39.0 - URINARY TRACT INFECTION, SITE NOT SPECIFIED Qualifiers: Urinary tract infection type: acute cystitis Hematuria presence: without hematuria Qualified Code(s): N30.00 - Acute cystitis without hematuria oncho plan all cx result noted changed to oral abx we will continue for another 3-4 days oral abx rest as per primary team
--- NOTE | 2017-10-25 13:41 | PN ---
Progress Note, Physician History of Present Illness: seen and examined today in nad. feeling better. pain significantly improved. sitting up eating lunch. no new complaints. - Current Medication List Current Medications: Active Medications Acetaminophen (Tylenol -) 650 mg PO Q6H PRN PRN Reason: FEVER Last Admin: 10/25/17 05:06 Dose: 650 mg Amlodipine Besylate (Norvasc -) 5 mg PO HS [facility] Last Admin: 10/24/17 22:27 Dose: 5 mg Amoxicillin/Clavulanate Potassium (Augmentin - 500mg Tablet) 1 tab PO BID@0800, 1730 [facility] Calcium Carbonate/Cholecalciferol (Os-Tevin 500+D -) 1 tab PO BID [facility] Last Admin: 10/25/17 11:41 Dose: 1 tab Clotrimazole (Lotrisone Cream (Small Tube)) 1 applic TP TID [facility] Enoxaparin Sodium (Lovenox -) 40 mg SQ DAILY [facility] Last Admin: 10/25/17 11:41 Dose: 40 mg Lactated Ringer's (Lactated Ringers Solution) 1,000 mls @ 125 mls/hr IV ASDIR [facility] Last Admin: 10/25/17 05:34 Dose: 125 mls/hr Latanoprost (Xalatan 0.005% Eye Drops -) 1 drop OU HS [facility] Last Admin: 10/24/17 22:00 Dose: Not Given Lisinopril (Prinivil) 40 mg PO DAILY [facility] Last Admin: 10/25/17 11:42 Dose: 40 mg Ondansetron HCl (Zofran Injection) 4 mg IVPUSH Q6H PRN PRN Reason: NAUSEA AND/OR VOMITING - Objective Vital Signs: Vital Signs Temperature 98.0 F 10/25/17 06:15 Pulse Rate 71 10/25/17 06:15 Respiratory Rate 20 10/25/17 06:15 Blood Pressure 132/74 10/25/17 06:15 O2 Sat by Pulse Oximetry (%) 99 10/24/17 21:00 Constitutional: Yes: No Distress, Calm Eyes: Yes: Conjunctiva Clear, EOM Intact HENT: Yes: Atraumatic, Normocephalic Neck: Yes: Supple, Trachea Midline Cardiovascular: Yes: Regular Rate and Rhythm, Murmur, S1, S2. No: Bradycardia, Tachycardia, Pulse Irregular, Bruit, JVD, Gallop, Rub, S3, S4, Varicosities Respiratory: Yes: Regular, CTA Bilaterally. No: Rales, Rhonchi, SOB, Wheezes Gastrointestinal: Yes: Normal Bowel Sounds, Soft. No: Distention, Tenderness Musculoskeletal: Yes: WNL Extremities: Yes: WNL Edema: No Peripheral Pulses WNL: Yes Neurological: Yes: Alert, Oriented Psychiatric: Yes: Alert, Oriented Labs: CBC, BMP 10/25/17 06:00 10/25/17 06:00 INR, PTT INR 0.88 (0.82-1.09) 10/22/17 17:55 - ....Imaging Chest X-ray: Report Reviewed, Image Reviewed EKG: Report Reviewed, Image Reviewed Other: Report Reviewed, Image Reviewed Assessment/Plan 87 year old woman with a h/o HTN, central retinal vein occlusion, arthritis, dementia, degenerative vertebral disorder, [facility] and found to have a L femoral neck fracture now s/p left hip pinning. REC: Pt tolerated procedure well without cardiac complications Preop echo showed Normal LV systolic function with no significant valve disease. Cont outpatient HTN meds, BP is adequately controlled No additional planned inpatient cardiac workup at this time, please call with any additional questions.
--- NOTE | 2017-10-25 13:46 | DS ---
Physical Examination Vital Signs: Vital Signs Temperature 98.0 F 10/25/17 06:15 Pulse Rate 71 10/25/17 06:15 Respiratory Rate 20 10/25/17 06:15 Blood Pressure 132/74 10/25/17 06:15 O2 Sat by Pulse Oximetry (%) 99 10/24/17 21:00 Constitutional: Yes: No Distress HENT: Yes: Atraumatic Neck: Yes: Supple Cardiovascular: Yes: Regular Rate and Rhythm Respiratory: Yes: CTA Bilaterally Gastrointestinal: Yes: Normal Bowel Sounds Extremities: Yes: Other (left hip incision clean cellulitis lower extremity improving) Edema: LLE: Trace, RLE: Trace Peripheral Pulses WNL: Yes Neurological: Yes: Other (awake and alert) Labs: CBC, BMP 10/25/17 06:00 10/25/17 06:00 Discharge Summary Reason For Visit: URINARY TRACT INFECTION,CELLULITIS Current Active Problems Cellulitis (Acute) Fracture of femoral neck, left (Acute) UTI (urinary tract infection) (Acute) Condition: Guarded - Instructions - Home Medications Comprehensive Discharge Medication List: Ambulatory Orders Acetaminophen [Tylenol .Extra-Strength -] 1,000 mg PO Q6H PRN 10/23/17 Amlodipine Besylate [Norvasc -] 5 mg PO HS PRN 10/23/17 Bisacodyl [Laxative] 5 mg PO DAILY PRN 10/23/17 Clotrimazole [Lotrimin -] 1 applic TP DAILY 10/23/17 Cyclobenzaprine HCl [Flexeril -] 5 mg PO TID PRN 10/23/17 Dimethicone/Colloidal Oatmeal [Aveeno Daily Moisturizing Lot] 532 ml TP DAILY Latanoprost 0.005% Eye Drops [Xalatan 0.005% Eye Drops -] 1 drop OU HS 10/23/17 Lisinopril [Prinivil -] 40 mg PO DAILY 10/23/17 Magnesium Hydrox 2400MG/30Ml [Milk of Magnesia -] 30 ml PO DAILY PRN 10/23/17 Neomycin/Bacitracin/Polymyxinb [Neosporin Ointment] 15 gm TP DAILY 10/23/17 Peg 400/Hypromellose/Glycerin [Artificial Tears Drops] 1 drop OU TID 10/23/17 Amox-Tr/K Cl [Augmentin 500-125mg Tablet -] 1 tab PO BID@0800,1730 #10 tablet Heparin - 5,000 unit SQ BID vial 10/25/17 DC TO [facility]
[2017-10-25] MEDS ORDERED: CLOTRIMAZOLE/BETAMET DIPROP 15 GM TUBE TP SCH (14:00)
[2017-10-25 14:51] VITALS: BP 134/70; PULSE 86; TEMP 98.6
[2017-10-25] MEDS ORDERED: AMOX TR/POT CLAV 500MG/125MG TABLETS (FP) PO SCH (17:30)
--- NOTE | 2017-10-25 21:20 | PN ---
Progress Note (short form) - Note Progress Note: pt lying comf in bed AF VSS hip wound dressing CDI minimal discomfort with hip ROM calves soft NT NVID s/p hip pinning -pt doing well -stable for dc -to follow up in 10-14 days -lovenox for DVT prophylaxis for 4 weeks -TTWB
== END 2017-10-25 19:40 | DRG 481 ==
LOC: JER 16:53 → JERBED 21:56 → J8W 10-23 20:48 → J6S 10-24 11:34
PROVIDERS: ADMIT Internal Medicine; ATTEND Internal Medicine
PROC: 0QH734Z Insertion of Internal Fixation Device into Left Upper Femur, Percutaneous Approach (ICD-10-PCS; principal; 2017-10-24 07:30)
DX: S72.012A Unspecified intracapsular fracture of left femur, initial encounter for closed fracture (principal); N39.0 Urinary tract infection, site not specified; L03.115 Cellulitis of right lower limb; L03.116 Cellulitis of left lower limb; H34.8192 Central retinal vein occlusion, unspecified eye, stable; S72.002A Fracture of unspecified part of neck of left femur, initial encounter for closed fracture; F03.90 Unspecified dementia, unspecified severity, without behavioral disturbance, psychotic disturbance, mood disturbance, and anxiety; M19.91 Primary osteoarthritis, unspecified site; I10 Essential (primary) hypertension; W01.0XXA Fall on same level from slipping, tripping and stumbling without subsequent striking against object, initial encounter; Y93.01 Activity, walking, marching and hiking; Y92.122 Bedroom in nursing home as the place of occurrence of the external cause; Y99.8 Other external cause status; I87.2 Venous insufficiency (chronic) (peripheral)
CPT/HCPCS: 36415; 70450-TC; 71045-TC-FY; 72125-TC; 72192-TC; 73523-TC-FY; 76000-TC-FY; 80053; 81003; 81015; 82550; 83690; 84484; 85025; 85610; 87040; 87086; 93005; 93010; 93306-TC; 94760; 97116-GP; 97161-GP; 99284-25; J0131; J1644; J7030